=== PATIENT | male | born 1995 | race Caucasian/White ===

== ENCOUNTER 2018-08-20 15:22 | Emergency (ER) | payer BC ==
[~2018-08-20] VITALS: Ht 177.8 cm; Wt 70.3 kg
[2018-08-20 15:30] VITALS: BP_SYST 115
[2018-08-20] MEDS ORDERED: KETOROLAC TROMETHAMINE 60 MG/2 ML VIAL IM ONE (15:45)
[2018-08-20 16:40] VITALS: BP_SYST 122
== END 2018-08-20 16:39 | disposition home or self-care (01) ==
LOC: SED 15:22
DX: S39.012A Strain of muscle, fascia and tendon of lower back, initial encounter (principal); F41.9 Anxiety disorder, unspecified; V43.52XA Car driver injured in collision with other type car in traffic accident, initial encounter; Y93.89 Activity, other specified; Y92.410 Unspecified street and highway as the place of occurrence of the external cause; Y99.8 Other external cause status
CPT/HCPCS: 72100; 96372; 99283; J1885